=== PATIENT | male | born 1965 | race Two or more races ===

== ENCOUNTER 2020-10-18 19:57 | Emergency (ER) | payer OTHER ==
--- NOTE | 2020-10-18 20:18 | ED Physician Documentation ---
PD HPI ABD PAIN - Stated complaint Stated Complaint: LOWER LT ABD PX - Chief complaint Chief Complaint: Abd Pain PD PAST MEDICAL HISTORY - Present Medications Home Medications: Ambulatory Orders Medication Instructions Recorded Confirmed No Known Home Medications 10/18/20 10/18/20 - Allergies Allergies/Adverse Reactions: Allergies Allergy/AdvReac Type Severity Reaction Status Date / Time No Known Drug Allergies Allergy Verified 10/18/20 20:04 Results - Vitals Vitals: Vital Signs - 24 hr 10/18/20 20:01 Temperature 37.9 C Heart Rate 100 Respiratory 16 Rate Blood Pressure 147/84 H O2 Saturation 99 Oxygen O2 Source Room air
[2020-10-18 20:31] LABS: BASOPHILS # (AUTO) 0.1 10^3/uL (0.0-0.1); BASOPHILS % (AUTO) 0.3 %; EOSINOPHILS # (AUTO) 0.1 10^3/uL (0.0-0.7); EOSINOPHILS % (AUTO) 0.5 %; HCT - HEMATOCRIT 47.4 % (42.0-52.0); HGB - HEMOGLOBIN 15.6 g/dL (14.0-18.0); LYMPHOCYTES % (AUTO) 6.6 %; MEAN CORPUSCULAR HEMOGLOBIN 26.3 pg (27.0-31.0); MEAN CORPUSCULAR HGB CONC 32.9 g/dL (32.0-36.0); MEAN CORPUSCULAR VOLUME 79.9 fL (80.0-94.0); MEAN PLATELET VOLUME 8.5 fL (7.4-11.4); MONOCYTES % (AUTO) 6.3 %; NEUTROPHILS # (AUTO) 13.3 10^3/uL (1.5-6.6); PLT - PLATELET COUNT 297 10^3/uL (130-450); RED BLOOD COUNT 5.93 10^6/uL (4.70-6.10); RED CELL DISTRIBUTION WIDTH 13.8 % (12.0-15.0); WHITE BLOOD COUNT 15.5 x10^3/uL (4.8-10.8)
[2020-10-18] MEDS ORDERED: HYDROmorphone 1 MG/ML CARPUJECT IVP STA ×2 (20:34→22:04)
[2020-10-18] MEDS ORDERED: SODIUM CHLORIDE 0.9% 1,000 ML IV STA (20:34)
[2020-10-18] MEDS ORDERED: ONDANSETRON 4 MG/2 ML VIAL IVP STA (20:34)
[2020-10-18 20:43] LABS: ALBUMIN 4.7 g/dL (3.2-5.5); ALBUMIN/GLOBULIN RATIO 1.5 (1.0-2.2); BILIRUBIN,TOTAL 0.7 mg/dL (0.2-1.0); CALCIUM 9.8 mg/dL (8.5-10.3); CREATININE 1.1 mg/dL (0.6-1.2); POTASSIUM 3.3 mmol/L (3.5-5.0); TOTAL PROTEIN 7.9 g/dL (6.7-8.2)
[2020-10-18 20:44] LABS: BILIRUBIN,URINE NEGATIVE (NEGATIVE); CLARITY,URINE CLOUDY (CLEAR); GLUCOSE, URINE (UA) NEGATIVE (NEGATIVE); KETONES,URINE (UA) 40 mg/dL (NEGATIVE); LEUKOCYTE ESTERASE, URINE MODERATE (NEGATIVE); NITRITE,URINE POSITIVE (NEGATIVE); OCCULT BLOOD,URINE LARGE (NEGATIVE); PH,URINE 5.5 PH (5.0-7.5); PROTEIN,URINE 100 mg/dL (NEGATIVE); UROBILINOGEN,URINE 1 (NORMAL) E.U./dL (NORMAL)
[2020-10-18 20:50] LABS: BACTERIA,URINE Many /HPF (None Seen); SQUAMOUS EPITHELIAL CELL,UR NONE SEEN (<= Few); WBC,URINE >25 /HPF (0-3)
--- NOTE | 2020-10-18 21:19 | ED Physician Documentation ---
PD HPI MALE - Stated complaint Stated Complaint: LOWER LT ABD PX - Chief complaint Chief Complaint: Abd Pain - History obtained from History obtained from: Patient - History of Present Illness Timing - onset: Enter time (14:00), Today Timing - details: Abrupt onset Pain level now: 9 Associated symptoms: Testiclar pain Similar symptoms before: Has not had sx before Recently seen: Not recently seen - Additional information Additional information: c/o rapid onset left groin and left testicular pain since 2 PM today. No apparent inciting factor. worse with movement, particularly with left hip flexion. He also notes dark urine since this onset. denies injury, denies h/o similar symptoms Review of Systems Constitutional: reports: Fever (subjective (felt like he had a fever since last night but has not taken temperature)) GI: denies: Abdominal Pain, Nausea, Vomiting : reports: Testicular pain. denies: Dysuria, Frequency, Discharge PD PAST MEDICAL HISTORY - Past Medical History Past Medical History: No - Past Surgical History Past Surgical History: Yes Ortho: Rotator cuff repair - Present Medications Home Medications: Ambulatory Orders Medication Instructions Recorded Confirmed Ciprofloxacin HCl [Cipro] 500 mg PO BID #19 tablet 10/19/20 Oxycodone HCl/Acetaminophen 1 - 2 each PO Q6H PRN #14 tablet 10/19/20 [Percocet 5-325 mg Tablet] - Allergies Allergies/Adverse Reactions: Allergies Allergy/AdvReac Type Severity Reaction Status Date / Time No Known Drug Allergies Allergy Verified 10/18/20 20:04 - Social History Does the pt smoke?: No Smoking Status: Never smoker Does the pt drink ETOH?: No Does the pt have substance abuse?: No - Immunizations Immunizations are current?: Yes PD ED PE NORMAL - Vitals Vital signs reviewed: Yes - General General: Alert and oriented X 3, Well developed/nourished, Other (appears to be in waxing/waning painful discomfort during H+P) - Neck Neck: Supple, no meningeal sign - Cardiac Cardiac: RRR, No murmur - Respiratory Respiratory: No respiratory distress, Clear bilaterally - Abdomen Abdomen: Soft, Non tender, Non distended - Derm Derm: Normal color, No rash PD ED PE EXPANDED - Male Male : Circumcised, Testes descended jason, Tenderness (exquisitely tender left testicle, limits exam due to tenderness). No: Skin lesions, Discharge Results - Vitals Vitals: Oxygen O2 Source Room air - Labs Labs: Microbiology 10/18/20 20:31 Urine Culture - Final Urine,Clean Catch Escherichia Coli 10/18/20 20:26 Blood Culture - Preliminary Blood - Left Iv Start NO GROWTH AFTER 1 DAY 10/18/20 20:25 Blood Culture - Preliminary Blood - Right Arm NO GROWTH AFTER 1 DAY Laboratory Tests 10/18/20 10/18/20 10/18/20 20:25 20:25 20:25 WBC 15.5 H RBC 5.93 Hgb 15.6 Hct 47.4 MCV 79.9 L MCH 26.3 L MCHC 32.9 RDW 13.8 Plt Count 297 MPV 8.5 Neut # (Auto) 13.3 H Lymph # (Auto) 1.0 L [place] # (Auto) 1.0 Eos # (Auto) 0.1 Baso # (Auto) 0.1 Absolute Nucleated RBC 0.00 Nucleated RBC % 0.0 Sodium 139 Potassium 3.3 L Chloride 99 L Carbon Dioxide 29 Anion Gap 11.0 BUN 14 Creatinine 1.1 Estimated GFR (MDRD) 69 L Glucose 160 H Lactic Acid 1.6 Calcium 9.8 Total Bilirubin 0.7 AST 21 ALT 21 Alkaline Phosphatase 56 Total Protein 7.9 Albumin 4.7 Globulin 3.2 Albumin/Globulin Ratio 1.5 Urine Color Urine Clarity Urine pH Ur Specific [place] Urine Protein Urine Glucose (UA) Urine Ketones Urine Occult Blood Urine Nitrite Urine Bilirubin Urine Urobilinogen Ur Leukocyte Esterase Urine RBC Urine WBC Ur Squamous Epith Cells Urine Bacteria Urine Culture Comments 10/18/20 20:31 WBC RBC Hgb Hct MCV MCH MCHC RDW Plt Count MPV Neut # (Auto) Lymph # (Auto) [place] # (Auto) Eos # (Auto) Baso # (Auto) Absolute Nucleated RBC Nucleated RBC % Sodium Potassium Chloride Carbon Dioxide Anion Gap BUN Creatinine Estimated GFR (MDRD) Glucose Lactic Acid Calcium Total Bilirubin AST ALT Alkaline Phosphatase Total Protein Albumin Globulin Albumin/Globulin Ratio Urine Color YELLOW Urine Clarity CLOUDY Urine pH 5.5 Ur Specific [place] >=1.030 H Urine Protein 100 H Urine Glucose (UA) NEGATIVE Urine Ketones 40 H Urine Occult Blood LARGE H Urine Nitrite POSITIVE H Urine Bilirubin NEGATIVE Urine Urobilinogen 1 (NORMAL) Ur Leukocyte Esterase MODERATE H Urine RBC 11-25 H Urine WBC >25 H Ur Squamous Epith Cells NONE SEEN Urine Bacteria Many H Urine Culture Comments INDICATED - Rads (name of study) testicular US bilaterally Radiology: Prelim report reviewed, See rad report CT A/P with IV contrast Radiology: Prelim report reviewed, See rad report PD MEDICAL DECISION MAKING - ED course Complexity details: reviewed results, re-evaluated patient, considered differential, d/w patient ED course: UA results s/o UTI and US suggests left-sided epididymitis. CT suggests fat- containing left inguinal hernia. Will treat UTI with Cipro (which would also potentially treat epididymitis if it is of bacterial origin). Results reviewed with patient, instructed to follow up with PMD, next available appointment, return if worse in any way. I am prescribing a short course of short-acting opioid pain medication for this patient. I have reviewed the patients [employer] and no concerning findings were noted. I have discussed that the opioids are for short term therapy only, and will not be refilled from the ED. Departure - Departure Disposition: 01 Home, Self Care Clinical Impression: Epididymitis Urinary tract infection Qualifiers: Urinary tract infection type: acute cystitis Hematuria presence: with hematuria Qualified Code(s): N30.01 - Acute cystitis with hematuria Inguinal hernia Qualifiers: Obstruction and gangrene presence: without obstruction or gangrene Laterality: unilateral Recurrence: not specified as recurrent Qualified Code(s): K40.90 - Unilateral inguinal hernia, without obstruction or gangrene, not specified as recurrent Condition: Good Instructions: ED Epididymitis, ED Hernia Inguinal, ED UTI Cystitis Male Prescriptions: Ciprofloxacin HCl [Cipro] 500 mg PO BID #19 tablet Oxycodone HCl/Acetaminophen [Percocet 5-325 mg Tablet] 1 - 2 each PO Q6H PRN #14 tablet PRN Reason: pain Comments: I am prescribing a short course of narcotic pain medication for you. These are potentially dangerous and addictive medications that should be used carefully. These medications may constipate you. Take an [id number] stool softener (docusate) twice daily with plenty of water while taking these medications. If you go 24 hours without a bowel movement, take [id number] miralax, per package instructions. Do not drink or drive while taking these medications. If you received narcotic or sedating medications while in the emergency department, do not drive for 24 hours. Store this medication in a safe, secure place and out of reach of children. It is a violation of federal law to give or sell this medication to another person or to use in a manner other than prescribed. The ED will not refill narcotic prescriptions, including prescriptions lost or stolen. To dispose of unwanted medications: 1. [facility] at [address] in [place] has a medication drop box. They accept prescription medications (in pill form) Thursday through Thursday 9:00 a.m. to 5:00 p.m. 2. [facility] accepts prescription medications (in pill form only) for disposal year round. Call for more information. 3. Contact the [facility] for the next [facility] sponsored prescription drug collection event. , [phone], or [phone]; Discharge Date/Time: 10/19/20 02:13
[2020-10-18] MEDS ORDERED: IOVERSOL 320 100 ML VIAL IVP ONE ×2 (23:21→23:54)
[2020-10-19] MEDS ORDERED: LACTOBACILLUS RHAMNOSUS GG CAPSULE PO STA (01:46)
[2020-10-19] MEDS ORDERED: CIPROFLOXACIN 250 MG TABLET PO STA (01:46)
[2020-10-19] MEDS ORDERED: ACETAMINOPHEN 325 MG TABLET PO STA (01:47)
[2020-10-19] MEDS ORDERED: IBUPROFEN 600 MG TABLET PO STA (01:48)
[2020-10-19] MEDS ORDERED: oxyCODONE/ACET 5/325 Prepack 4 PO STA (01:48)
[2020-10-19 05:44] VITALS: BP 140/83
--- NOTE | 2020-10-19 09:20 | CT Report ---
PROCEDURE: Abdomen/Pelvis W INDICATIONS: LLQ pain, hernia on US CONTRAST: IV CONTRAST: Optiray 320 ml: 100 PO CONTRAST: *NO PO CONTRAST TECHNIQUE: After the administration of intravenous contrast, 5 mm thick sections acquired from the diaphragms to the symphysis. 5 mm thick coronal and sagittal reformats were acquired. For radiation dose reducti on, the following was used: automated exposure control, adjustment of mA and/or kV according to lai ent size. COMPARISON: None. FINDINGS: Image quality: Excellent. ABDOMEN: Lung bases: Lung bases are clear. Heart size is normal. Small hiatal hernia. Solid organs: Liver and spleen are normal in size and enhancement. Gallbladder is normal. Biliary system is non dilated. Pancreas enhances normally. No adrenal nodules. Kidneys demonstrate normal size and enhancement, without hydronephrosis. Peritoneum and bowel: Bowel loops demonstrate normal wall thickness and caliber. Moderate amount of stool in colon. Appendix is normal. No free fluid or air. Nodes and vessels: No retroperitoneal or mesenteric adenopathy by size criteria. Aorta and inferior vena cava are normal in size. Miscellaneous: No ventral hernias. PELVIS: Genitourinary: Bladder wall appears mildly thickened. Miscellaneous: No adenopathy. Small fat-containing inguinal hernias bilaterally. Bones: No suspicious bony lesions. No vertebral body compression fractures. IMPRESSION: 1. Mild bladder wall thickening suggesting cystitis. Recommend clinical correlation. No significant discrepancy with the preliminary interpretation. Reviewed by: Toya Sutton MD on 10/19/2020 9:19 AM PDT Approved by: Tyoa Sutton MD on 10/19/2020 9:19 AM PDT Station ID: [id number]
--- NOTE | 2020-10-19 12:43 | Ultrasound Report ---
PROCEDURE: Testicle w/Doppler INDICATIONS: left testicular pain TECHNIQUE: Real-time scanning was performed of the scrotum and testicles, with image documentation. Color and p ulse Doppler interrogation was performed of both testicles. COMPARISON: None. FINDINGS: Right: Testicle is normal in size at 3.3 x 2.5 x 2.6 cm, and homogenous in echotexture. Epididymis demonstrates a cyst measuring 1.0 x 0.8 x 1.5 cm. No hydrocele or varicoceles. Overlying scrotal ski n is normal in thickness. Left: Testicle is normal in size at 2.9 x 2.0 x 2.5 cm, and homogeneous in echotexture. Epididymis is normal in overall size and morphology. Mild increased vascularity is noted at the tail region. No hydrocele or varicoceles. Overlying scrotal skin is normal in thickness. Doppler: Color and pulse Doppler demonstrate normal and symmetric arterial flow in both testicles. Incidental note of left inguinal hernia, partially reducible and fat-containing. IMPRESSION: 1. Right epididymal cyst. 2. Mild increased vascularity within the left epididymis. Epididymitis cannot be excluded. The above findings are concordant with preliminary report. Reviewed by: Karla Goldstein MD on 10/19/2020 12:42 PM PDT Approved by: Karla Goldstein MD on 10/19/2020 12:42 PM PDT Station ID: [id number]
== END 2020-10-19 02:13 | disposition home or self-care (01) ==
LOC: ED 19:57
DX: N30.01 Acute cystitis with hematuria (principal); K40.90 Unilateral inguinal hernia, without obstruction or gangrene, not specified as recurrent
CPT/HCPCS: 36415; 74177; 76870; 80053; 81001; 83605; 85025; 87040; 87086; 87181; 93975; 96374; 96375; 96376; 99284; A9270; J1170; Q9967